=== PATIENT | male | born 1990 | race Caucasian/White ===

== ENCOUNTER 2016-12-12 17:24 | Emergency (ER) | payer OTHER ==
[~2016-12-12] VITALS: Ht 182.9 cm; Wt 99.8 kg
[2016-12-12] MEDS ORDERED: NAPROXEN 250 MG TAB PO ONE (18:00)
--- NOTE | 2016-12-12 18:54 | REP ---
Clinical: Trauma. Technique: AP, lateral, bilateral oblique views of the right ankle. Findings: Mild lateral soft tissue swelling suggests inversion injury. No acute fracture dislocation. Osseous structures and joint spaces including ankle mortise appear intact. Impression: Mild lateral soft tissue swelling. No acute fracture or dislocation. Signed by Riccardo Crawford MD 12/12/2016 06:46 P
[2016-12-12] MEDS ORDERED: NAPR500T PO (19:02)
[2016-12-12 19:13] VITALS: BP 130/81
== END 2016-12-12 19:13 | disposition home or self-care (01) ==
LOC: M ED 18:10
DX: S93.491A Sprain of other ligament of right ankle, initial encounter (principal); X50.9XXA Other and unspecified overexertion or strenuous movements or postures, initial encounter; Y92.89 Other specified places as the place of occurrence of the external cause; Y93.89 Activity, other specified; Y99.1 Military activity

== ENCOUNTER → 2018-06-04 | Outpatient (REF) | payer OTHER | LOC: M LAB REF 18:52 | DX: L91.8 Other hypertrophic disorders of the skin (principal) | CPT/HCPCS: 88304 ==